=== PATIENT | male | born 1970 | race African-American/Black ===

== ENCOUNTER 2021-07-15 16:52 | Emergency (ER) | payer OTHER | END 2021-07-15 18:40 | disposition home or self-care (01) | LOC: CSHERS 16:52 | DX: I10 Essential (primary) hypertension (principal); R22.0 Localized swelling, mass and lump, head; Z79.899 Other long term (current) drug therapy | CPT/HCPCS: 99283 ==

== ENCOUNTER 2021-08-01 11:08 | Emergency (ER) | payer OTHER | END 2021-08-01 13:32 | disposition home or self-care (01) | LOC: CSHERS 11:08 | DX: B34.9 Viral infection, unspecified (principal); I10 Essential (primary) hypertension | CPT/HCPCS: 99283 ==

== ENCOUNTER 2022-10-20 11:21 | Emergency (ER) | payer OTHER ==
[2022-10-20 12:45] LABS: #Monocytes 0.7 10x3/uL (0.0-1.1); #Neutrophils 5.2 10x3/uL (1.5-8.4); %Basophils 0.4 % (0.0-2.0); %Eosinophils 0.1 % (0.0-6.0); %Lymphocytes 26.8 % (18.0-47.0); %Monocytes 8.4 % (0.0-10.0); %Neutrophils 64.1 % (40.0-75.0); Hemoglobin 15.6 g/dL (13.5-17.5); Mean Corpuscular Hemoglobin 26.3 pg (27.0-33.0); Mean Corpuscular Volume 79.8 fl (81.2-95.1); Mean Platelet Volume 9.4 fl (7.4-10.4); Platelet Count 351 10x3/uL (150-450); Red Blood Cell (RBC) Count 5.93 10x6/uL (4.32-5.72); White Blood Cell (WBC) Count 8.1 10x3/uL (3.5-10.5)
[2022-10-20 12:55] LABS: ALT (SGPT) 17 U/L (8-55); AST (SGOT) 16 U/L (5-34); Albumin 4.2 g/dL (3.5-5.0); Alkaline Phosphatase 67 U/L (40-110); Anion Gap 13 mmol/L (10-20); BUN (Urea Nitrogen) 7 mg/dL (8.4-25.7); Bilirubin, Total 0.3 mg/dL (0.2-1.2); Calc. Creatinine Clearance 0 mL/min (70-130); Calcium 8.9 mg/dL (7.8-10.44); Carbon Dioxide 26 mmol/L (22-29); Chloride 100 mmol/L (98-107); Estimated GFR 91; Globulin 3.8 g/dL (2.4-3.5); Glucose 140 mg/dL (70-105); Potassium 3.2 mmol/L (3.5-5.1); Sodium 136 mmol/L (136-145)
[2022-10-20 13:14] LABS: CKMB 0.6 ng/mL (0-6.6)
[2022-10-20 16:44] LABS: CKMB 0.7 ng/mL (0-6.6)
== END 2022-10-20 17:17 | disposition home or self-care (01) ==
LOC: CSHERS 11:21
DX: I10 Essential (primary) hypertension (principal); R77.8 Other specified abnormalities of plasma proteins
CPT/HCPCS: 71045; 80053; 82553; 84484; 85025; 93005